=== PATIENT | male | born 1970 | race Hispanic/Latino ===

== ENCOUNTER 2019-05-30 11:55 | Observation (INO) | payer SELFPAY ==
[2019-05-30] MEDS ORDERED: Lorazepam 2 MG/ML VIAL ONE (11:58)
[2019-05-30] MEDS ORDERED: Nitroglycerin 2% Ointment 1 INCH/1 GM Packet ONE (12:18)
[2019-05-30] MEDS ORDERED: Nitroglycerin 0.4 MG TAB 1 EACH ONE (12:18)
--- NOTE | 2019-05-30 12:20 | RAD ---
XR Chest 1 View Portable HISTORY: Chest pain, hypertension, dizziness COMPARISON: None FINDINGS: The heart size is normal. The lungs are well expanded without focal areas of consolidation, pneumothorax or pleural effusions. IMPRESSION: No radiographic evidence of acute cardiopulmonary process.
[2019-05-30 12:39] LABS: #Basophils 0.1 thou/uL (0.0-0.2); #Eosinphils 0.2 thou/uL (0.0-0.7); #Lymphocytes 2.5 thou/uL (1.20-3.40); #Monocytes 0.6 thou/uL (0.11-0.59); #Neutrophils 4.1 thou/uL (1.40-6.50); %Basophils 1.1 % (0.0-1.0); %Lymphocytes 33.6 % (21.0-51.0); %Monocytes 8.5 % (0.0-10.0); %Neutrophils 54.7 % (42.0-75.0); Hemoglobin 13.9 g/dL (14.0-18.0); Mean Corpuscular HGB CONC 33.9 g/dL (32.0-36.0); Mean Corpuscular Hemoglobin 27.3 pg (27.0-31.0); Mean Corpuscular Volume 80.3 fL (78.0-98.0); Mean Platelet Volume 8.1 fL (7.4-10.4); Platelet Count 281 thou/uL (130-400); RBC Distribution Width 11.4 % (11.5-14.5); White Blood Cell (WBC) Count 7.5 thou/uL (4.8-10.8)
[2019-05-30 13:05] LABS: ALT (SGPT) 29 U/L (8-55); AST (SGOT) 26 U/L (5-34); Albumin 4.7 g/dL (3.5-5.0); Alkaline Phosphatase 92 U/L (40-110); Anion Gap 15 mmol/L (10-20); BUN (Urea Nitrogen) 15 mg/dL (8.4-25.7); Bilirubin, Total 1.3 mg/dL (0.2-1.2); CK (CPK) 108 U/L (30-200); Calc. Creatinine Clearance 0 mL/min (70-130); Calcium 9.4 mg/dL (7.8-10.44); Carbon Dioxide 24 mmol/L (22-29); Chloride 107 mmol/L (98-107); Estimated GFR-MDRD 76; Glucose 97 mg/dL (70-105); Potassium 3.6 mmol/L (3.5-5.1); Protein, Total 7.7 g/dL (6.0-8.3); Sodium 142 mmol/L (136-145)
--- NOTE | 2019-05-30 13:36 | PDOC.FPRHP ---
- History of Present Illness Chief Complaint: Chest Pain History of Present Illness: Pt is a 49 yo male with PMH significant for ependymoma s/p radiation, surgical resection and poor follow up who presents with chest pressure, head pressure for the previous couple of hours and found to have elevated blood pressures.. He does state for the last few weeks he has not been feeling himself because of "brain fog". Today, he was at rest when the chest pressure, head pressure became apparent. He became nauseated but not diaphoretic. He has poor PCP follow up as he has not seen a physician in 6 years. Strong family hx of HTN. Non-smoker. He has checked his BP's in outpt setting and are elevated. Denies cardiac hx including CA, stent placement. Diet is poor. Walks a few miles frequently. Pt has lymphadenopathy apparent for 2 years atleast. They are non-tender, fluctuate in size depending if pt is sick such as URI. He has not been seen by his neurologist in 6 years for his ependymoma. He was supposed to see his neurologist every 6 months. He denies recent weight gain/weight loss. [place] is from out of town. ED Course: He was evaluated in the ED by Dr. Craig and found to have elevated blood pressures and given nitrobid, sublingual nitro, and lorazepam. - Allergies/Adverse Reactions Allergies Allergy/AdvReac Type Severity Reaction Status Date / Time No Known Allergies Allergy Unverified 05/30/19 14:51 - Home Medications Medication Instructions Recorded Confirmed Type No Known 05/30/19 05/30/19 History - History PMHx: Spine cancer - Ependymoma PSHx: Neck surgery. Work accident with left ring finger amputation. FHx: Mother - HTN, Maternal GM - HTN, Brother - HTN Social: . Denies tobacco or drug use. 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 denies: weakness - Vital signs BP: 246/136 HR: 99 RR: 16 Tmax: 98.2 Pox: 98% on RA Wt: 85 kg - Physical Exam Constitutional: NAD, awake, alert and oriented HEENT: PERRLA, EOMI Neck: trachea midline, no JVD -Neck: Bilateral cervical lympadenopathy, 2 Lesions on L side - nonmobile, ~2-3 cm in circumference, non painful. Most inferior lesion on L is supraclavicular. No lesions noted in the axillary or groin Heart: RRR, normal S1/S2, no murmurs/rubs/gallops, pulses present, no edema Lungs: CTAB, no respiratory distress, good air movement, no wheezing Abdomen: soft, non-tender, bowel sounds present Musculoskeletal: normal structure, ROM grossly normal Neurological: no focal deficit, CN II-XII intact Skin: no rash/lesions Heme/Lymphatic: no purpura, no petechia Psychiatric: normal mood and affect FMR H&P: Results - Labs Result Diagrams: 05/30/19 12:29 05/31/19 04:45 Lab results: WBC 7.5 thou/uL (4.8-10.8) 05/30/19 12: Hgb 13.9 g/dL (14.0-18.0) L 05/30/19 12: Hct 41.0 % (42.0-52.0) L 05/30/19 12:29 MCV 80.3 fL (78.0-98.0) 05/30/19 12:29 Plt Count 281 thou/uL (130-400) 05/30/19 12: Neutrophils % 54.7 % (42.0-75.0) 05/30/19 12:29 Sodium 142 mmol/L (136-145) 05/30/19 12:29 Potassium 3.6 mmol/L (3.5-5.1) 05/30/19 12: Chloride 107 mmol/L (98-107) 05/30/19 12: Carbon Dioxide 24 mmol/L (22-29) 05/30/19 12:29 BUN 15 mg/dL (8.4-25.7) 05/30/19 12: Creatinine 1.03 mg/dL (0.7-1.3) 05/30/19 12:29 Glucose 97 mg/dL (70-105) 05/30/19 12:29 Calcium 9.4 mg/dL (7.8-10.44) 05/30/19 12:29 Total Bilirubin 1.3 mg/dL (0.2-1.2) H 05/30/19 12:29 AST 26 U/L (5-34) 05/30/19 12:29 ALT 29 U/L (8-55) 05/30/19 12:29 Alkaline Phosphatase 92 U/L (40-110) 05/30/19 12:29 Creatine Kinase 108 U/L (30-200) 05/30/19 12:29 Serum Total Protein 7.7 g/dL (6.0-8.3) 05/30/19 12: Albumin 4.7 g/dL (3.5-5.0) 05/30/19 12:29 - EKG Interpretation EKG: NSR, no st changes - Radiology Interpretation Chest x-ray Status: image reviewed by me Additional comment: No acute abnormalities FMR H&P: A/P - Problem List (1) Ependymoma Current Visit: Yes Status: Acute Code(s): C71.9 - MALIGNANT NEOPLASM OF BRAIN, UNSPECIFIED (2) Chest pain Current Visit: Yes Status: Acute Code(s): R07.9 - CHEST PAIN, UNSPECIFIED (3) Lymphadenopathy of head and neck region Current Visit: Yes Status: Acute Code(s): R59.0 - LOCALIZED ENLARGED LYMPH NODES (4) Hypertensive urgency Current Visit: Yes Status: Acute Code(s): I16.0 - HYPERTENSIVE URGENCY - Plan Pt is a 49 yo male here for: # Atypical Chest Pressure Began with rest. Was alleviated with nitro. No significant cardiac history. Heart score 3. - trend trops. Trop neg x 1. - lipid panel pending - Exercise stress - no echo at this time # Hypertensive Urgency - Start with amlodipine 10 mg and will likely need to add medication # Cervical/Supraclavicular Lymphadenopathy - pending MRI cervical spine - pending Neck U/S # Needs PCP in outpt setting # Ependymoma - Needs to follow up with Neurology Fluids: none Diet: NPO midnight VTE:Lovenox Code: Full Dispo: < 48 hrs FMR H&P: Upper Level - Pertinent history 49 y/o M with h/o spine cancer presents because of dizziness. He reports that for the past couple of weeks he has been feeling "off". He reports dizziness and feeling faint. He reports some numbness in his left arm so he went and bought garlic and took that and aleve. He reports today that he was feeling a sensation in his chest, not pain, but just off. He also was feeling faint, nauseous, and short of breath. He has had radiation on his cancer. He is supposed to be following with neurosurgeon, but he has not been compliant. Last visit was 6 months ago. He reports a recent pain in his lower spine. He reports lymph nodes in his neck that have been enlarging over the past 2 years. - Pertinent findings BP 187/118, HR 116, RR 27, O2 sat 98% on RA PE: Gen - alert, oriented, NAD HEENT - MMM, Cervical lymphadenopathy (R anterior cervical node 2cm, fixed, smooth margins, L anterior cervical node 2.5cm fixed, smooth margins, L supraclavicular node 1.5cm fixed) CV - tachycardic, regular rhythm Lungs - CTAB, no wheezes Labs: BUN 15, Cr 1.03, GFR 76, Trop < 0.010 CXR - no acute process - Plan Date/Time: 05/30/19 1336 I, Karen Bates MD, PGY-3, have evaluated this patient and agree with findings/ plan as outlined by biology internship resident. Pertinent changes/additions are listed here. 1. Atypical Chest Pain Heart score 3. EKG WNL. Trop neg x1. Pt with chest discomfort associated with new onset elevated BP. -Obs on tele -Trend trops -Aspirin -FLP to risk stratify -Stress in AM -Nitro prn -Repeat EKG for any new or worsening chest pain 2. Hypertensive Urgency Pt with BP's in 220s/140s s/p nitro. No prior dx of HTN, but strong family hx and has not been to doctor in > 6 years. Pt also with spinal cancer s/p resection and radiation. Potential for disruptions in sympathetic system. -Start amlodipine -Hydralazine prn -Monitor closely 3. Lymphadenopathy Pt with LAD in setting of known ependymoma with poor follow-up. -Will get US of neck soft tissue to evaluate enlarged lymph nodes. Consider CT scan pending results 4. L arm numbness likely 2/2 Ependymoma This comes and goes, but has been getting worse. He is s/p resection and radiation of his tumor, but has not been compliant with follow-up over the past 6 years. -MRI cervical spine Diet: HH, NPO at midnight VTE ppx: Lovenox Code status: Full Dispo: Obs on tele, length of stay likely less than 48 hours Addendum - Attending - Attending Attestation Date/Time: 05/30/19 [id number] I personally evaluated the patient and discussed the management with Dr. Mayo and Dr. Bates I agree with the History, Examination, Assessment and Plan documented above with any addition or exceptions noted below. 49 yo male with previous hx of ependymoma (s/p radiation, dx 17 years ago, no follow up in 6 months) presents for evaluation of "not feeling myself." Patient reports noticing severely elevated blood pressures, up to 190 systolic. Over the past 2 wks has had recurrent headaches with head pressure and mental "fogging." Patient does not have PCP. Extensive family hx of HTN in all primary relatives. However onset has been late in life. Other associated symptoms include chest discomfort located in left lower chest. Not described as painful. No other associated symptoms. Patient also concerned about swollen lymph nodes. Located to neck. Bilaterally. Nontender. Fluctuates in size. Present between 2 to 3 years. Denies other lymph nodes. Patient reports noticing increased frequency of left arm numbness and tingling. No swelling or decrease function or loss of range of motion. Has been presents for 2 years. Has been progressive. Now daily symptoms. Will admit patient. Place on tele. Patient noted to have HTN urgency. BP dropped significantly with bilateral nitro patch. Will stop 1 patch. Start oral CCB. Hydralazine as needed. EKG without ST changes. Trend trops. Stress in AM due to agina. MRI to evaluate radiculopathy and LAD. Palpable nodes to anterior cervical and subclavicular. ABrayMD
[2019-05-30] MEDS ORDERED: hydrALAZINE 20 MG/ML VIAL SLOW IVP PRN (14:36)
[2019-05-30] MEDS ORDERED: Acetaminophen 325 MG TAB PO PRN (14:36)
[2019-05-30] MEDS ORDERED: Nitroglycerin 0.4 MG TAB (25 Tab Bottle) PO PRN (14:36)
[2019-05-30 14:47] LABS: Bilirubin Negative (Negative); Blood, Urine Negative (Negative); Clarity Clear (Clear); Glucose, Urine (Dipstick) Normal (Negative); Leukocyte Negative Leu/uL (Negative); Nitrite Negative (Negative); Protein, Urine (Dipstick) Negative (Neg-Trace); Urobilinogen Normal mg/dL (Less than 2)
[2019-05-30] MEDS ORDERED: Amlodipine 5 MG TAB PO SCH ×2 (15:00→15:40)
[2019-05-30] MEDS ORDERED: Aspirin 325 mg Enteric Coated Tablet PO SCH (15:00)
[2019-05-30 15:03] LABS: Amphetamine Not Detected (NotDetected); Barbiturates Screen Not Detected (NotDetected); Benzodiazepine Screen Not Detected (NotDetected); Cocaine Metabolite Screen Not Detected (NotDetected); Medtox Control Line Valid? VALID (VALID); Medtox Reader # READER 4; Methadone Not Detected (NotDetected); Methamphetamine Not Detected (NotDetected); Opiate Screen Not Detected (NotDetected); Oxycodone Screen Not Detected (NotDetected); Phencyclidine (PCP) Not Detected (NotDetected); THC/Cannabinoid Screen Not Detected (NotDetected); Tricyclic Screen Not Detected (NotDetected)
[2019-05-30] MEDS ORDERED: Magnevist 469MG/ML 20 ML VIAL ONE (16:00)
--- NOTE | 2019-05-30 16:03 | MRI ---
CERVICAL SPINE MRI WITH AND WITHOUT CONTRAST: HISTORY: Lymphadenopathy. 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 Radiation therapy in 2004. Left arm numbness. Patient has a drainage catheter in the cord. TECHNIQUE: Cervical spine MRI is performed with and without intravenous gadolinium administration. Multi sequent ial planar imaging was performed. FINDINGS: Straightening of cervical lordosis is presumed positional. No significant STIR hyperintensity to sugg est vertebral body edema or ligamentous injury. No pathologic enhancement with regards to the vertebral bodies. There is marked lymphadenopathy throughout the left and right neck. Electrical Installation Supervisor enlarged right nec k lymph node measures 3.9 x 2.9 cm. Additional enlarged lymph nodes are noted. Electrical Installation Supervisor enlarged left level 2 lymph node measures 3.6 x 2.4 cm, left level 3 lymph node measures 2.2 x 3.3 cm . Additional bilateral supraclavicular lymph nodes are noted. There is a linear T2 hypointensity that is intramedullary in location, starting at the superior aspec t of C4 and terminating at the superior aspect of C6. There is cord expansion with intramedullary T2 hyperintensity involving the cervical cord from C4 through C5. There is associated intramedullary enhancement. The area of enhancement is predominantly at the C4 vertebral body level and measures 1.4 cm cranial caudal by 0.8 cm anterior-posterior by 0.9 cm mediolateral. Posterior decompression at C3, C4, C5 is noted. C2-C3: No significant central canal stenosis or significant neural foraminal narrowing C3-C4: No significant central canal stenosis or significant neural foraminal narrowing C4-C5: No significant central canal stenosis or significant neural foraminal narrowing C5-C6: No significant central canal stenosis. Bilaterally, neural foramina are patent C6-C7: Broad-based disc bulge without significant central canal stenosis. Moderate right foraminal na rrowing due to uncovertebral hypertrophy. Patent left neural foramen C7-T1: No significant central canal stenosis or significant neural foraminal narrowing IMPRESSION: 1. Extensive soft tissue neck lymphadenopathy. 2. 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 There does appear to be an intramedullary catheter that is within the spinal cord from C4 through. Transcribed Date/Time: 05/30/2019 4:33 PM
[2019-05-30 16:46] VITALS: BMI 27.1
[2019-05-30 17:03] LABS: Troponin I Less than 0.010 ng/mL (< 0.028)
[2019-05-30 19:06] LABS: Troponin I Less than 0.010 ng/mL (< 0.028)
[2019-05-30] MEDS: Famotidine 20 MG TAB PO SCH (22:17)
[2019-05-30] MEDS ORDERED: Fioricet 325/50/40 mg Tablet PO SCH (23:00)
[2019-05-31 05:47] LABS: Anion Gap 12 mmol/L (10-20); BUN (Urea Nitrogen) 11 mg/dL (8.4-25.7); Calc. Creatinine Clearance 123 mL/min (70-130); Carbon Dioxide 24 mmol/L (22-29); Cardiac Risk 2.9 (Less than 4.5); Chloride 107 mmol/L (98-107); Cholesterol 132 mg/dl (< 200 Desired); Estimated GFR-MDRD 90; Glucose 93 mg/dL (70-105); HDL Cholesterol 45 mg/dL (>60 Neg Risk); LDL Cholesterol, Calculated 77 mg/dL; Sodium 139 mmol/L (136-145); Triglycerides 48 mg/dL (Less than 150)
--- NOTE | 2019-05-31 05:58 | PDOC.FM ---
- Subjective Subjective: Pt is doing well today. He states he no longer has chest pain, 1/10 SINGH. He knows there is a remnant of his cancer from previous work ups with his neurologist. He is going to get a PCP in the outpt setting. - Objective Vital Signs & Weight: Vital Signs (12 hours) Temp Pulse Resp BP BP Pulse Ox 05/30/19 22:22 85 126/67 05/30/19 19:55 97.6 F 82 16 168/98 H 96 Weight Weight 88.451 kg I&O: 05/29/19 05/30/19 05/31/19 06:59 06:59 06:59 Intake Total 700 Balance 700 Result Diagrams: 05/30/19 12:29 05/31/19 04:45 Phys Exam - Physical Examination Constitutional: NAD HEENT: PERRLA, moist MMs no change in neck lymph nodes Respiratory: no wheezing, no rales, clear to auscultation bilateral Cardiovascular: RRR, no significant murmur Gastrointestinal: soft, non-tender, no distention Musculoskeletal: no edema, pulses present Psychiatric: normal affect, A&O x 3 Dx/Plan (1) Ependymoma Code(s): C71.9 - MALIGNANT NEOPLASM OF BRAIN, UNSPECIFIED Status: Acute (2) Chest pain Code(s): R07.9 - CHEST PAIN, UNSPECIFIED Status: Acute (3) Lymphadenopathy of head and neck region Code(s): R59.0 - LOCALIZED ENLARGED LYMPH NODES Status: Acute (4) Hypertensive urgency Code(s): I16.0 - HYPERTENSIVE URGENCY Status: Acute - Plan Plan: Pt is a 49 yo male here for: # Atypical Chest Pressure Began with rest. Was alleviated with nitro. No significant cardiac history. Heart score 3. - trend trops. Trop neg x 3. - lipid panel WNL. No statin therapy unless stress test is positive. - Exercise stress this am - no echo at this time # Hypertensive Urgency - Start with amlodipine 10 mg and will likely need to add medication but fairly well controlled this am, SBP 141 # Elevated TSH - pending T4/T3 # Cervical/Supraclavicular Lymphadenopathy MRI neck revealed marked lymphadenopathy on R and L neck, supraclavicular; intermedullary mass noted at C4-C5. Hx of ependymoma. - pt will require follow up in outpt with neurology/neurosurgery. It is possible biopsy u/s guided could be performed but likely outpt workup. # Ependymoma - Needs to follow up with Neurology # Needs PCP in outpt setting Fluids: none Diet: NPO midnight VTE:Lovenox Code: Full Dispo: < 48 hrs Addendum - Attending - Attending Attestation Date/Time: 05/31/19 2379 I personally evaluated the patient and discussed the management with Dr. Mayo I agree with the History, Examination, Assessment and Plan documented above with any addition or exceptions noted below. Start statin based on ASCVD risk. NM stress test pending. Dispo pending results. Discussed need for outpatient f/u of chronic problems and establishing with PCP.
[2019-05-31 07:13] LABS: Free T4 (Free Thyroxine) 0.73 ng/dL (0.70-1.48)
[2019-05-31] MEDS: Famotidine 20 MG TAB PO SCH (08:46)
[2019-05-31] MEDS ORDERED: Aspirin 325 mg Enteric Coated Tablet PO SCH (09:00)
[2019-05-31] MEDS ORDERED: Enoxaparin Sodium 40 MG/0.4 ML SYRINGE SC SCH (09:00)
[2019-05-31] MEDS ORDERED: Amlodipine 5 MG TAB PO SCH ×2 (09:00)
--- NOTE | 2019-05-31 15:06 | NM ---
EXAM: CARDIAC SPECT HISTORY: Chest pain TECHNIQUE: A myocardial perfusion scan was performed using the single isotope 1 day protocol with crista hnetium 99m sestamibi. [10 mCi] was injected intravenously for the rest exam followed by 30 mCi for the stress study. Exercise stress was monitored and interpreted by Dr. Loaiza FINDINGS: Homogeneous tracer distribution is seen in the myocardial segments on stress and rest image s without fixed or reversible defects. Gated SPECT LVEF: 60% Wall motion exam: Normal IMPRESSION: Normal myocardial perfusion scan
[2019-05-31 16:23] VITALS: BP 162/95; TEMP 98.2
[2019-05-31] MEDS ORDERED: Atorvastatin Calcium 40 MG TAB PO SCH (21:00)
--- NOTE | 2019-06-01 13:31 | DIS ---
DATE OF ADMISSION: 05/30/2019 DATE OF DISCHARGE: 05/31/2019 RESIDENT: Severiano Mayo DO ADMITTING ATTENDING: Joshua Ryan MD DISCHARGE ATTENDING: Joshua Ryan MD CONSULTS: None. PROCEDURES: 1. Chest x-ray on 05/30/2019 revealed no radiographic evidence of acute cardiopulmonary processes. 2. Cervical spine MRI revealed extensive soft tissue neck lymphadenopathy. Marked lymphadenopathy throughout the left and right neck. Staffing Mgr enlarged right neck lymph node measures 3.9 x 2.9 cm. Additional enlarged lymph nodes are noted. Staffing Mgr enlarged left level 2 lymph node measures 3.6 x 2.4 cm, left level 3 lymph node measures 2.2 x 3.3 cm. Additional bilateral supraclavicular lymph nodes are noted. There is a linear T2 hypointensity that is intramedullary in location, starting at the superior aspect of C4 and terminating at the superior aspect of C6. There is cord expansion within the intramedullary T2 hyperintensity involving the cervical cord from C4 through C5. There is associated intramedullary enhancement. The area of enhancement is predominantly at the C4 vertebral body and measures 1.4 cm craniocaudal by 0.8 cm anterior-posterior by 0.9 cm medial lateral. Posterior decompression at C3, C4, C5 is noted. Stress test on 05/31/2019 revealed LVEF 60%. Wall motion normal. Normal myocardial perfusion scan. PRIMARY DIAGNOSES: 1. Hypertensive urgency. 2. Atypical chest pain. 3. Cervical and supraclavicular lymphadenopathy. 4. History of an ependymoma. SECONDARY DIAGNOSIS: Poor primary care followup. DISCHARGE MEDICATIONS: 1. Aspirin 81 mg p.o. daily. 2. Atorvastatin 40 mg p.o. daily. 3. Amlodipine 10 mg p.o. daily. DISCONTINUED MEDICATIONS: None. HISTORY OF PRESENT ILLNESS/HOSPITAL COURSE: Joshua Mcgregor is a 49-year-old male with past medical history significant for ependymoma, status post radiation and surgical resection with poor followup to Neurology, has no primary care physician, who presented with chest pressure, head pressure for the previous few hours before admission. He was found to have elevated pressures in the emergency department. He states that he had been in a brain fog for the last couple of weeks. The pain came on at rest. He became nauseated, but not become diaphoretic. He has a strong family history of hypertension. He is a nonsmoker. He denies any previous cardiac history and states that he frequently walks a few miles a day. Of note, he did have significant lymphadenopathy apparent for 2 years. They were nontender about 2 to 3 cm in size and were nonmobile. He was seen by a Neurologist 6 years ago, status post radiation and surgical resection, but has had no followup since. He was instructed to follow up every 6 months. He denies any weight gain or weight loss. The patient's complaints he was given a stress test, which was within normal limits. Due to his high blood pressures, he was discharged on amlodipine 10 and having elevated ASCVD score, he was also given atorvastatin. He was instructed to follow up with primary care physician in the outpatient setting to help titrate his medications. He is instructed to see a Neurologist or Neurosurgery and follow up with his cervical and supraclavicular lymphadenopathy and intramedullary mass seen on MRI. Otherwise, the patient was stable on discharge and agreed with plan. DISPOSITION: Stable. DISCHARGE INSTRUCTIONS: 1. Location: [facility]. 2. Diet: Heart healthy. 3. Activity: Ad maria. 4. Followup: Follow up with primary care provider next week. 5. Followup with Neurology or Neurosurgery as soon as he can. Job ID: [id number]
== END 2019-05-31 17:21 | disposition home or self-care (01) ==
LOC: ERS 11:55 → 2SW 13:39
PROVIDERS: ADMIT Family Medicine; ATTEND Family Medicine
DX: R07.89 Other chest pain (principal); I16.0 Hypertensive urgency; R59.0 Localized enlarged lymph nodes; R20.0 Anesthesia of skin; R51 Headache; Z85.841 Personal history of malignant neoplasm of brain; Z82.49 Family history of ischemic heart disease and other diseases of the circulatory system
CPT/HCPCS: 36415; 71045; 72156; 78452; 80048; 80053; 80061; 80306; 81003; 82550; 83735; 84100; 84439; 84443; 84481; 84484; 85025; 93005; 93017; 94760; 96374; A9500; A9579; G0378; J2060